=== PATIENT | male | born 1960 | race Caucasian/White ===

== ENCOUNTER 2016-12-01 10:43 | Emergency (ER) | payer OTHER ==
[~2016-12-01] VITALS: Ht 177.8 cm; Wt 149.7 kg
[~2016-12-01 10:43] MED LIST: ASPIRIN CHILDRE81 MG PO; ATORVASTATIN CA20 MG PO; AUGMENTIN 875875 MG PO; COUMADIN 5 MG TA5 MG PO; COUMADIN 7.5 M7.5 MG PO; DILTIAZEM HCL180 MG PO; FUROSEMIDE40 MG PO; KLOR-CON M1010 MEQ PO; METFORMIN500 MG PO; METOPROLOL TAR100 MG PO; RANITIDINE300 MG PO; ROXICODONE5 MG PO; SPIRONOLACTONE25 MG PO; TRAMADOL HYDROC50 MG PO; WARFARIN SODIUM5 MG PO
[2016-12-01 11:15] VITALS: BP 123/79
--- NOTE | 2016-12-01 12:26 | RADIOLOGY REPORT ---
EXAMINATION: XR HIP, RIGHT CLINICAL INFORMATION: Psoriatic arthritis. Acute pain. COMPARISON: Right hip 02/22/2012. TECHNIQUE: Two views of the right hip. FINDINGS: The right hip joint space is minimally narrowed. There is a right lateral acetabular spur. No acute fracture, dislocation or bony erosive changes seen. The soft tissues are normal. IMPRESSION: Minimal right lateral acetabular marginal osteophyte with mild loss of right hip joint space. These probably represent early degenerative changes
--- NOTE | 2016-12-01 12:31 | ED UPPER/LOWER EXTREMITY COMPL ---
History of Present Illness General Chief Complaint: Lower Extremity Injury Stated Complaint: RT HIP PAIN AFTER WALKING DOWN STAIRS Source: patient Exam Limitations: no limitations Allergies Coded Allergies: NO KNOWN ALLERGIES (10/24/14) Reconcile Medications Amoxicillin/Clavulanate Potass (Amox-Clav 875-125 MG Tablet) 875 MG-125 MG TABLET 1 TAB PO BID CELLULITIS take twice a day for four more days then stop Aspirin (Children's Aspirin) 81 MG TAB.CHEW 1 TAB PO DAILY HEART HEALTH ( Reported) Atorvastatin Calcium (Lipitor) 20 MG TABLET 1 TAB PO DAILY CHOLESTEROL ( Reported) Cyclobenzaprine HCl 5 MG TABLET 1 TAB PO TIDPRN PRN muscle spasms DILTIAZEM HCL (Diltiazem 24HR ER) 180 MG CAP.ER.24H 1 TAB PO DAILY HEART ( Reported) Furosemide 40 MG TABLET 1 TAB PO DAILY WATER PILL (Reported) METFORMIN HCL (Metformin) 500 MG TABLET 1 TAB PO TID DIABETES (Reported) Metoprolol Tartrate 100 MG TABLET 1 TAB PO BID HEART (Reported) OXYCODONE HCL (Roxicodone) 5 MG TABLET 5 MG PO Q8 PRN PAIN SCALE 5-10 Oxycodone HCl/Acetaminophen (Percocet 5-325 MG Tablet) 5 MG-325 MG TABLET 1 TAB PO BID PRN pain Potassium Chloride (Klor-Con M10) 10 MEQ TAB.ER.PRT 1 TAB PO DAILY SUPPLEMENT (Reported) RANITIDINE HCL (Ranitidine HCl) 300 MG TABLET 1 TAB PO DAILY GI (Reported) Spironolactone 25 MG TABLET 1 TAB PO DAILY BP (Reported) TRAMADOL HCL (Tramadol Hydrochloride) 50 MG TABLET 1 TAB PO BID PAIN ( Reported) Warfarin Sodium (Coumadin) 5 MG TABLET 1 TAB PO DAILY AFIB (Reported) ON WEDNESDAYS , OTHER DAYS TAKES 7.5 MG Warfarin Sodium (Coumadin) 7.5 MG TABLET 1 TAB PO DAILY AFIB (Reported) TAKES EVERYDAY EXCEPT ON FRIDAY THAT HE TAKES 5 MG Triage Note: PT TO TRIAGE C/C RIGHT HIP PAIN X 1 DAY 03/12 WHILE SITTING 08/12 WHILE STANDING. PAIN STARTED WHILE WALKING DOWN STAIRS AND HEARD A "CRUNCH" DENIES FALL. DENIES INJURY OR TRAUMA. HX PSORIATIC ARTHRITIS. Triage Nurses Notes Reviewed? yes HPI: This patient is a 55-year-old male who presented to the emergency department today for evaluation of right hip pain. The patient reported that he was walking down some stairs this morning and felt, "a crunch," in his right hip. He reported that since that time, he has had 10 out of 10 pain in his right hip with ambulation. The pain is better when he is sitting down. The pain is sharp and throbbing. He denied any numbness or tingling in his extremity. He did report some mild lower back pain. He reported some numbness in the right side of his hip. No bowel or bladder incontinence. No saddle paresthesias. The patient denied any trauma to the area. He reported that he has not had any recent injuries. (PAMELA ROCHA PA-C) Vital Signs & Intake/Output Vital Signs & Intake/Output ED Intake and Output 12/02 0000 12/01 1200 Intake Total 0 Output Total Balance 0 Intake, Oral 0 Patient 330 lb Weight Past History Travel History Traveled to [facility] past 21 day No Medical History Any Pertinent Medical History? see below for history Cardiovascular: AFIB, hyperlipidemia Respiratory: asthma Gastrointestinal: GERD Musculoskeletal: psoariatic arthritis, spinal stenosis Endocrine: diabetes History of MRSA: No History of VRE: No History of CDIFF: No Pneumonia Vaccine: 10/24/13 Influenza Vaccine: 08/25/14 Surgical History Surgical History: non-contributory Psychosocial History Who do you live with Spouse Services at Home None What is your primary language Dominican Tobacco Use: Quit >30 days ago ETOH Use: denies use Family History Family History, If Any: FATHER FH: diabetes mellitus FH: HTN (hypertension) MOTHER FH: diabetes mellitus FH: HTN (hypertension) Hx Contributory? No (PAMELA ROCHA PA-C) Review of Systems Review of Systems Constitutional: Reports: no symptoms. EENTM: Reports: no symptoms. Respiratory: Reports: no symptoms. Cardiovascular: Reports: no symptoms. Gastrointestinal/Abdominal: Reports: no symptoms. Musculoskeletal: Reports: see HPI. Skin: Reports: no symptoms. Neurological/Psychological: Reports: see HPI. All Other Systems: Reviewed and Negative (PAMELA ROCHA PA-C) Physical Exam Physical Exam General Appearance: well developed/nourished, no apparent distress, alert, awake Comments: Well-developed well-nourished person in no acute distress HEENT: Normal EENT exam, moist mucous membranes Neck: Supple Back: Normal inspection. No midline tenderness Respiratory: No respiratory distress. Speaking in full sentences Abdomen: Soft, nontender and nondistended Right lower extremity: No effusions overlying erythema or ecchymosis or joint spaces. No bony or muscular deformities noted. Lower extremity brace in place. Range of motion of the hip limited due to pain. Tenderness to palpation over the lateral aspect of the hip. Dorsalis pedis and posterior tibialis pulses 2+ and strong Neuro: Alert oriented x3, cranial nerves II through XII grossly intact. Skin: No appreciable rash on exposed skin, skin is warm and dry. Psych: Mood and affect is normal (JOSEFINA CRUZ,PAMELA) Progress Differential Diagnosis: arterial insufficiency, cellulitis, CHF, compartment syndrome, contusion, dislocation, DVT, fracture, gout, septic arthritis, sprain, tendon injury Plan of Care: Current Medications Sig/John Start time Last Medication Dose Stop Time Status Admin Cyclobenzaprine HCl 10 MG ONCE ONE 12/01 1245 AC (Flexeril 10MG Tab) 12/01 1246 Oxycodone/ 1 TAB ONCE ONE 12/01 1245 AC Acetaminophen 12/01 1246 (Percocet) Diagnostic Imaging: Viewed by Me: Radiology Read. Discussed w/RAD: Radiology Read. Radiology Impression: PATIENT: JAMIE BENJAMIN PRESENT AGE: 55 PATIENT ACCOUNT NO: [id number] : 60 LOCATION: [facility] ORDERING PHYSICIAN: PAMELA ROCHA PA-C SERVICE DATE: 12/01/16 EXAM TYPE: RAD - XRY-HIP 2-3 VIEWS, RIGHT EXAMINATION: XR HIP, RIGHT CLINICAL INFORMATION: Psoriatic arthritis. Acute pain. COMPARISON: Right hip 02/22/2012. TECHNIQUE: Two views of the right hip. FINDINGS: The right hip joint space is minimally narrowed. There is a right lateral acetabular spur. No acute fracture, dislocation or bony erosive changes seen. The soft tissues are normal. IMPRESSION: Minimal right lateral acetabular marginal osteophyte with mild loss of right hip joint space. These probably represent early degenerative changes DICTATED BY: KARAN MEDLEY MD DATE/TIME DICTATED:12/01/161221 SOCIAL WORK ADMINISTRATOR :SHARON DATE/TIME TRANSCRIBED:12/01/161221 CONFIDENTIAL, DO NOT COPY WITHOUT APPROPRIATE AUTHORIZATION. <Electronically signed in Other Vendor System> SIGNED BY: KARAN MEDLEY MD 12/01/16 1226 (PAMELA ROCHA PA-C) Departure Departure Disposition: HOME OR SELF CARE Condition: Stable Clinical Impression Primary Impression: Degenerative joint disease (DJD) of hip Qualifiers: Osteoarthritis type: unspecified Laterality: right Qualified Code: M16.11 - Unilateral primary osteoarthritis, right hip Referrals: MARTA MAHONEY,JASON Vincent (PCP/Family) ELISSA MAHONEY,DURAN Additional Instructions: Continue to take all previously prescribed medications as directed. Gentle stretching. You may apply ice or heat to the affected area as needed. Take medication for pain as prescribed. Take Flexeril as prescribed for muscle relaxation. Please be aware that both of these medications may make you drowsy. Call to make an appointment with your orthopedic physician or with the orthopedic physician whose information has been provided to you in this packet. Avoid any strenuous activity over the next several days. Return for any worsening symptoms or concerns. Departure Forms: Customer Survey General Discharge Information Prescriptions: Current Visit Scripts Oxycodone HCl/Acetaminophen (Percocet 5-325 MG Tablet) 1 TAB PO BID PRN pain #6 TAB Cyclobenzaprine HCl 1 TAB PO TIDPRN PRN muscle spasms #10 TAB (PAMELA ROCHA PA-C) PA/DEAN OF ADMISSIONS Co-Sign Statement Statement: ED Attending supervision documentation- [] I saw and evaluated the patient. I have also reviewed all the pertinent lab results and diagnostic results. I agree with the findings and the plan of care as documented in the PA's/DEAN OF ADMISSIONS's documentation. x I have reviewed the ED Record and agree with the PA's/DEAN OF ADMISSIONS's documentation. [] Additions or exceptions (if any) to the PAs/DEAN OF ADMISSIONS's note and plan are summarized below: [] (BENJAMIN MAHONEY,GUS)
[2016-12-01] MEDS ORDERED: CYCLOBENZAPRINE5 M2 PO (12:39)
[2016-12-01] MEDS ORDERED: PERCOCET 5-3251 EACH PO (12:39)
== END 2016-12-01 12:45 ==
LOC: ERH 10:43
DX: M16.11 Unilateral primary osteoarthritis, right hip (principal)
CPT/HCPCS: 73502-RT